=== PATIENT | male | born 1980 | race Caucasian/White ===

== ENCOUNTER 2020-04-14 07:20 | Outpatient (CLI) | payer OTHER | END 2020-04-14 07:21 | disposition home or self-care (01) | LOC: LABBT 07:20 | PROVIDERS: ATTEND Otolaryngology Plastic Surgery within the Head & Neck | DX: Z01.812 Encounter for preprocedural laboratory examination (principal); Z11.59 Encounter for screening for other viral diseases; G47.33 Obstructive sleep apnea (adult) (pediatric); J32.0 Chronic maxillary sinusitis; J32.2 Chronic ethmoidal sinusitis; J32.1 Chronic frontal sinusitis; J32.3 Chronic sphenoidal sinusitis; J34.3 Hypertrophy of nasal turbinates; J34.89 Other specified disorders of nose and nasal sinuses; J35.01 Chronic tonsillitis; J35.1 Hypertrophy of tonsils; J35.2 Hypertrophy of adenoids; K13.79 Other lesions of oral mucosa; R06.83 Snoring | CPT/HCPCS: 87635; U0003 ==

== ENCOUNTER 2020-04-16 09:07 | Day surgery (SDC) | payer OTHER ==
[2020-04-10 12:01] VITALS: BMI 29.1
[2020-04-16] MEDS ORDERED: AFRIN NASAL MIST 15 ML BOT ONE ×2 (09:41→12:23)
[2020-04-16] MEDS ORDERED: Glycopyrrolate 0.2 MG/ML 5 ML SYRINGE ONE (10:03)
[2020-04-16] MEDS ORDERED: PROPOFOL 200 MG/20 ML VIAL ONE (10:03)
[2020-04-16] MEDS ORDERED: Rocuronium Bromide 10 MG/ML (10ML VIAL) ONE (10:03)
[2020-04-16] MEDS ORDERED: Lidocaine 1% PF 5 ML VIAL ONE (10:03)
[2020-04-16] MEDS ORDERED: Midazolam HCl 2 mg/2 ml Vial ONE (11:52)
[2020-04-16] MEDS ORDERED: Fentanyl 100 MCG/2 ML VIAL ONE ×3 (11:52→13:33)
[2020-04-16] MEDS ORDERED: Ferric Subsulfate (ASTRINGYN) 8 ML VIAL ONE (11:53)
[2020-04-16] MEDS ORDERED: Lidocaine 1% w/Epinephrine 1:100K 20 ML VIAL ONE (11:53)
[2020-04-16] MEDS ORDERED: methylPREDNISolone Acetate 40 mg/ml Vial ONE (12:23)
[2020-04-16] MEDS ORDERED: HYDROcodone/Acetaminophen 5/325 mg Tablet ONE (13:40)
[2020-04-16] MEDS ORDERED: Ondansetron ODT 8 MG TAB ONE (13:42)
[2020-04-16] MEDS ORDERED: Hydrocodone-Acetamin 15 ML UDCUP ONE ×2 (14:42→16:04)
--- NOTE | 2020-04-17 15:41 | OP ---
DATE OF PROCEDURE: 04/16/2020 PREOPERATIVE DIAGNOSES: 1. Chronic rhinosinusitis. 2. Nasal obstruction. 3. Bilateral inferior turbinate hypertrophy. 4. Chronic adenotonsillitis. 5. Adenotonsillar hypertrophy. 6. Obstructive sleep apnea. POSTOPERATIVE DIAGNOSES: 1. Chronic rhinosinusitis. 2. Nasal obstruction. 3. Bilateral inferior turbinate hypertrophy. 4. Chronic adenotonsillitis. 5. Adenotonsillar hypertrophy. 6. Obstructive sleep apnea. PROCEDURES PERFORMED: 1. Bilateral endoscopic sinus surgery, total ethmoidectomy including sphenoidotomies with removal of tissue. 2. Bilateral endoscopic sinus surgery, frontal sinus exploration. 3. Bilateral endoscopic sinus surgery, maxillary antrostomies. 4. Bilateral inferior turbinate submucosal resection. 5. Tonsillectomy and adenoidectomy. 6. LandmarX stereotactic image-guided sinus procedure. ESTIMATED BLOOD LOSS: 20 mL. COMPLICATIONS: None. ANESTHESIA: GETA. DESCRIPTION OF PROCEDURE: After consent was obtained, the patient was identified, brought to the operating room, and placed on the operating table in the supine position. General endotracheal anesthesia and intravenous access were obtained and we proceeded with positioning the patient for oropharyngeal surgery. Oropharyngeal exposure was obtained with a Shelby-Tolu mouth gag after a head drape was placed and secured with a towel clip. The Shelby-Tolu mouth gag was then suspended from the Barrientos tray and palatal elevation was achieved with a red rubber catheter. The right tonsil was addressed first. We used a curved Allis to grasp the tonsil and retract it medially as an anterior pillar incision was made. The retrotonsillar fascial plane was then established and blunt dissection was performed with the suction cautery. Blood vessels were anticipated, identified, and cauterized as they were encountered. Ultimately, dissection was carried to the posterior tonsillar pillar mucosa which was incised hemostatically, as well as the base of tongue connection. The tonsil was then passed off as a specimen and bleeding points within the tonsillar bed were cauterized under direct visualization. We subsequently turned our attention to the contralateral side, where using a similar technique, a near identical procedure was performed. Again, the tonsil was grasped and retracted medially with a curved Allis. The retrotonsillar fascial plane was established and while the anterior pillar was retracted medially. The hemostatic blunt dissection of the tonsil with a suction cautery was performed with blood vessels anticipated, identified, and cauterized as they were encountered. Again, dissection continued to the base of tongue and posterior tonsillar pillar mucosa which was incised in a hemostatic fashion. The tonsillar beds were then carefully inspected and bleeding points were identified and cauterized with a suction cautery. After this portion of the procedure, hemostasis was completely obtained. Under direct mirror visualization, we visualized the adenoid pad. Under direct mirror visualization, we removed the bulk of the adenoid tissue with the adenoid curette. We then packed the nasopharynx for an appropriate period of time with [id number] tonsillar sponges. After a period of observation, we removed the pack. Under indirect mirror visualization, we obtained hemostasis and vaporization of residual adenoid tissue with electrocautery. The patient's oral cavity was copiously irrigated with iced saline and subsequently suctioned. After completion of the procedure, the nasal cavity and oropharynx were irrigated and suctioned as were the gastric contents. The patient was then awakened and transferred to the recovery room where the patient remained in stable condition prior to discharge to Day Stay. Following this, the [employer] image-guided system was then set up and calibrated and was noted to be within 1 mm of accuracy. The patient was then prepped and draped for standard nasal procedures. Following this, 1% lidocaine with 1:100,000 epinephrine were injected into the middle turbinates and lateral nasal wall bilaterally. Following this, the 0-degree endoscope was used to visualize the middle turbinate and the middle turbinate was medially fractured using a Hockley elevator. Following this, the uncinate process was identified and was examined. The uncinate process was noted to be inflamed and laterally displaced bilaterally. Following this, a ball-ended probe was used to anteriorly fracture the uncinate process bilaterally. Following this, the 0-degree microdebrider and the up-biting Blakesley forceps were used to remove the uncinate process bilaterally. Following this, the natural maxillary sinus ostia was identified with the 0-degree endoscope and the ball-ended probe. The natural maxillary ostia was then widened using a 40-degree microdebrider and the straight Blakesley forceps bilaterally. Following this, the ethmoidal bulla was identified bilaterally. A 0-degree microdebrider was used to puncture the ethmoidal bulla on its medial and inferior aspect bilaterally. Following this, the 0-degree microdebrider and the up-biting Blakesley forceps were used to remove the ethmoidal bulla. Following this, the grand lamella was identified posterior to this area and was punctured using the 0-degree microdebrider bilaterally. Following this, the ethmoidal cells were opened from the posterior to the anterior using the 0-degree microdebrider, the 40-degree microdebrider and the up-biting Blakesley forceps bilaterally. Following this, the 45-degree endoscope and the 40-degree microdebrider blade were used to further remove the anterior ethmoidal cells to the level of the frontal sinus recess bilaterally. Following this, the anterior wall of the sphenoid sinus was identified using the 0-degree endoscope. Using the 0-degree microdebrider, a sphenoidotomy was punctured into the sphenoid sinus bilaterally. The sphenoid ostia were then widened in a medially and inferior direction using the microdebrider bilaterally. Nasal polyps and bone were removed from this area. Following this, the 45-degree endoscope and the 40-degree microdebrider blade were used to further open the frontal recess area and expose the frontal sinus ostia bilaterally. The frontal sinus ostia were then widened using a 40- degree microdebrider bilaterally. Following this, the inferior turbinates were punctured on the anterior-inferior aspect and submucosal resection was performed of the anterior and inferior portions of the inferior turbinates bilaterally. Following this, the nasal cavity was irrigated and NasoPore packing was placed within the middle meatus. The patient tolerated the procedure well. Job ID: [id number]
== END 2020-04-16 16:50 | disposition home or self-care (01) ==
LOC: SDC 09:07
PROVIDERS: ATTEND Otolaryngology Plastic Surgery within the Head & Neck
PROC: 0CTQXZZ Resection of Adenoids, External Approach (ICD-10-PCS; principal; 2020-04-16)
PROC: 099R8ZZ Drainage of Left Maxillary Sinus, Via Natural or Artificial Opening Endoscopic (ICD-10-PCS; principal; 2020-04-16)
PROC: 09BS8ZZ Excision of Right Frontal Sinus, Via Natural or Artificial Opening Endoscopic (ICD-10-PCS; principal; 2020-04-16)
PROC: 8E09XBZ Computer Assisted Procedure of Head and Neck Region (ICD-10-PCS; principal; 2020-04-16)
PROC: 09BU8ZZ Excision of Right Ethmoid Sinus, Via Natural or Artificial Opening Endoscopic (ICD-10-PCS; principal; 2020-04-16)
PROC: 099X8ZZ Drainage of Left Sphenoid Sinus, Via Natural or Artificial Opening Endoscopic (ICD-10-PCS; principal; 2020-04-16)
PROC: 099Q8ZZ Drainage of Right Maxillary Sinus, Via Natural or Artificial Opening Endoscopic (ICD-10-PCS; principal; 2020-04-16)
PROC: 099W8ZZ Drainage of Right Sphenoid Sinus, Via Natural or Artificial Opening Endoscopic (ICD-10-PCS; principal; 2020-04-16)
PROC: 09BT8ZZ Excision of Left Frontal Sinus, Via Natural or Artificial Opening Endoscopic (ICD-10-PCS; principal; 2020-04-16)
PROC: 09BL8ZZ Excision of Nasal Turbinate, Via Natural or Artificial Opening Endoscopic (ICD-10-PCS; principal; 2020-04-16)
PROC: 09BV8ZZ Excision of Left Ethmoid Sinus, Via Natural or Artificial Opening Endoscopic (ICD-10-PCS; principal; 2020-04-16)
PROC: 0CTPXZZ Resection of Tonsils, External Approach (ICD-10-PCS; principal; 2020-04-16)
DX: J35.03 Chronic tonsillitis and adenoiditis (principal); J32.4 Chronic pansinusitis; J34.3 Hypertrophy of nasal turbinates; J34.89 Other specified disorders of nose and nasal sinuses; G47.33 Obstructive sleep apnea (adult) (pediatric); K13.79 Other lesions of oral mucosa
CPT/HCPCS: 88304; J2001; J2250; J2704; J2960; J3010; Q0162